=== PATIENT | female | born 2000 | race Asian ===

== ENCOUNTER 2024-09-12 19:10 | Emergency (ER) | payer SELFPAY ==
[~2024-09-12] VITALS: Ht 170.2 cm; Wt 69.0 kg
[2024-09-12 19:16] VITALS: O2SAT 97
[2024-09-12 20:05] LABS: HEMATOCRIT 39.1 % (36.0-48.0); HEMOGLOBIN 12.9 g/dL (12.0-16.0); MEAN CORPUSCULAR HEMOGLOBIN 26.8 pg (28.0-32.0); MEAN CORPUSCULAR VOLUME 81.1 fL (81.0-99.0); PLATELET 344 x1000/uL (130-400); RED BLOOD CELL COUNT 4.83 mill/uL (4.2-5.4); RED CELL DISTRIBUTION WIDTH 13.8 % (11.6-14.6); WHITE BLOOD COUNT 3.7 x1000/uL (4.5-11.0)
[2024-09-12 20:10] LABS: CHLORIDE 103 mEq/L (98-107); POTASSIUM 3.6 mEq/L (3.5-5.1); SODIUM 139 mEq/L (136-145)
[2024-09-12 20:11] LABS: CARBON DIOXIDE 28 mEq/L (21-32)
[2024-09-12 20:12] LABS: CALCIUM 9.2 mg/dL (8.7-10.4)
[2024-09-12 20:16] LABS: CREATININE 0.7 mg/dL (0.6-1.0); GLUCOSE 107 mg/dL (70-105); UREA NITROGEN BLOOD 11 mg/dL (9-23)
[2024-09-12 20:25] LABS: HCG SCREEN NEGATIVE
[2024-09-12 20:30] LABS: CLARITY URINE TURBID (CLEAR); COLOR URINE YELLOW (YELLOW); GLUCOSE URINE NEGATIVE (NEGATIVE); KETONES URINE NEGATIVE (NEGATIVE); LEUKOCYTE ESTERASE URINE 2+ (NEGATIVE); NITRITE URINE NEGATIVE (NEGATIVE); OCCULT BLOOD URINE NEGATIVE (NEGATIVE); PH URINE 7.5 (4.5-8.0); PROTEIN URINE NEGATIVE (NEGATIVE); SPECIFIC GRAVITY URINE 1.021 (1.005-1.030)
[2024-09-12 20:46] LABS: TROPONIN I HIGH SENSITIVITY < 4 ng/L (3.0-34)
[2024-09-12 20:54] LABS: AMORPHOUS SEDIMENT URINE 3+ /lpf; BACTERIA URINE TRACE; RBC URINE NONE SEEN /hpf (0-2); SQUAMOUS EPITHELIAL CELL URINE 1+ /lpf (RARE/1+)
[2024-09-12] MEDS ORDERED: NITR-87 MT (20:59)
[2024-09-12 21:36] VITALS: BP 127/91; PULSE 105; RESP 20; TEMP 36.9; O2SAT 100
== END 2024-09-12 21:46 | disposition home or self-care (01) ==
LOC: ER 19:10
DX: R55 Syncope and collapse (principal); N39.0 Urinary tract infection, site not specified; F19.90 Other psychoactive substance use, unspecified, uncomplicated
CPT/HCPCS: 36415; 71045; 80048; 81003; 81025; 84484; 84703; 85027; 93005; 99285